=== PATIENT | female | born 1970 | race Caucasian/White ===

== ENCOUNTER 2017-01-17 09:51 | Emergency (ER) | payer BC ==
[2017-01-17 10:07] VITALS: BP 140/88
--- NOTE | 2017-01-17 10:21 | UC ---
Ear Complaint HPI - HPI Summary HPI Summary: Patient is a 46yo otherwise healthy who arrives to with c/o of R ear pain since 0400 this morning. She states having been ill since Tuesday with a URI. Denies fever. Pain noticed first this morning and has not improved. She feels it may be clogged, but is also very irritated. Denies chest congestion, runny nose, BOWLING, cough or other viral symptoms. She does not have a significant history of ear infections and has no tubes. She has tried Tylenol with minimal relief. Denies other injuries or pain today. - History of Current Complaint Chief Complaint: UCEar Stated Complaint: RIGHT EAR COMPLAINT Time Seen by Provider: 01/17/17 10:06 Hx Obtained From: Patient Hx Last Menstrual Period: 01/07/17 ?: No Onset/Duration: Sudden Onset Severity Initially: Moderate Severity Currently: Moderate Pain Intensity: 6 Pain Scale Used: 0-10 Numeric Alleviating Factors: OTC Meds Associated Signs/Symptoms: Positive: Hearing Loss, Swelling @, URI Symptoms - Allergies/Home Medications Allergies/Adverse Reactions: Allergies Allergy/AdvReac Type Severity Reaction Status Date / Time Erythromycin AdvReac Vomiting Verified 01/17/17 10:07 Home Medications: Home Medications Acetaminophen [Tylenol 8 Hour] 650 mg PO ONCE PRN 01/17/17 [History Confirmed ] traZODone TAB* [Desyrel TAB*] 100 mg PO BEDTIME 01/17/17 [History Confirmed ] PMH/Surg Hx/FS Hx/Imm Hx Previously Healthy: Yes Respiratory History Of: Reports: Asthma - Surgical History Surgical History: Yes Surgery Procedure, Year, and Place: Cholecystectomy, 2001, [place] - Family History Known Family History: Positive: Unknown - Social History Occupation: Employed Full-time Lives: With Family Alcohol Use: Rare Substance Use Type: None Smoking Status (MU): Never Smoked Tobacco Have You Smoked in the Last Year: No Review of Systems Constitutional: Negative Skin: Negative Eyes: Negative ENT: Ear Ache, Other - cerumen impaction Respiratory: Negative Motor: Negative Neurovascular: Negative Musculoskeletal: Negative Psychological: Negative All Other Systems Reviewed And Are Negative: Yes Physical Exam Triage Information Reviewed: Yes Appearance: Well-Appearing, No Pain Distress, Well-Nourished Vital Signs: Initial Vital Signs Temp 98.8 F 01/17/17 10:03 Pulse 88 01/17/17 10:03 Resp 16 01/17/17 10:03 BP 140/88 01/17/17 10:03 Pulse Ox 100 01/17/17 10:03 Vital Signs Reviewed: Yes Eye Exam: Normal Eyes: Positive: Conjunctiva Clear ENT: Positive: Pharynx normal, TM red - right Neck exam: Normal Neck: Positive: Supple, Nontender, No Lymphadenopathy Respiratory Exam: Normal Respiratory: Positive: Chest non-tender, Lungs clear Cardiovascular Exam: Normal Cardiovascular: Positive: RRR Musculoskeletal Exam: Normal Musculoskeletal: Positive: Strength Intact Neurological Exam: Normal Psychological: Positive: Normal Response To Family, Age Appropriate Behavior Skin Exam: Normal Ear Complaint Course/Dx - Course Course Of Treatment: Ear irrigation performed of right ear. Patient tolerated well. Right ear with cerumen impaction and erythema around the TM and canal. Patient states pain is 10/10. No obvious drainage, but collection of fluid inside the canal. Patient has history of swimmers ear. Patient given ofloxacin drops and encouraged to take tylenol for ear pain. Patient will follow up with PCP. - Differential Dx/Diagnosis Differential Diagnosis/HQI/PQRI: Cerumen Impaction, Foreign Body, Otitis Externa , Otitis Media Provider Diagnoses: Otitis Externa Discharge - Discharge Plan Condition: Stable Disposition: HOME Prescriptions: Ofloxacin 0.3% OTIC.RYLEY* [Floxin 0.3% OTIC.RYLEY*] 1 drop OTIC ONCE #1 btl Patient Education Materials: Otitis Externa (ED) Referrals: Linda Cadena MD [Primary Care Provider] - Additional Instructions: Instill 10 drops into affected ear(s) once daily for 7 days Tylenol as needed for pain and inflammation of the ear Follow up with PCP If symptoms become worse, come back to .
== END 2017-01-17 10:47 | disposition home or self-care (01) ==
LOC: UCCORT 09:51
DX: H60.91 Unspecified otitis externa, right ear (principal); H61.21 Impacted cerumen, right ear; J45.909 Unspecified asthma, uncomplicated; Z90.49 Acquired absence of other specified parts of digestive tract; Z88.1 Allergy status to other antibiotic agents
CPT/HCPCS: 99213; G0463

== ENCOUNTER 2017-04-15 15:50 | Emergency (ER) | payer BC | END 2017-04-15 17:47 | disposition left against medical advice (07) | LOC: UCCORT 15:50 | DX: M54.5 Low back pain (principal); Z53.21 Procedure and treatment not carried out due to patient leaving prior to being seen by health care provider ==

== ENCOUNTER 2017-12-19 10:50 | Emergency (ER) | payer BC | END 2017-12-19 12:19 | disposition left against medical advice (07) | LOC: UCCORT 10:50 | DX: J34.89 Other specified disorders of nose and nasal sinuses (principal); H92.01 Otalgia, right ear; Z53.21 Procedure and treatment not carried out due to patient leaving prior to being seen by health care provider ==

== ENCOUNTER 2017-12-25 17:55 | Emergency (ER) | payer BC ==
--- NOTE | 2017-12-25 18:17 | UC ---
Throat Pain/Nasal Todd HPI - HPI Summary HPI Summary: Pt presents with sinus pain/pressure/congestion and b/l ear pressure for 1 week. Sore throat started 3-4 days ago. Has not been taking anything OTC. Denies fever, chills, SOB, chest pain, abdominal pain, n/v/d/c. - History of Current Complaint Stated Complaint: EAR,THROAT COMPLAINT Time Seen by Provider: 12/25/17 18:17 Hx Obtained From: Patient Hx Last Menstrual Period: 01/07/17 Onset/Duration: Gradual Onset Severity: Mild Pain Intensity: 4 Pain Scale Used: 0-10 Numeric - Allergies/Home Medications Allergies/Adverse Reactions: Allergies Allergy/AdvReac Type Severity Reaction Status Date / Time erythromycin AdvReac Vomiting Uncoded 12/25/17 18:21 Home Medications: Home Medications Acetaminophen [Acetaminophen Extra Strength] 1,000 mg PO SEE INSTRUCTIONS PRN [History Confirmed 12/25/17] Ibuprofen [Goodsense Ibuprofen] 400 mg PO ONCE PRN 12/25/17 [History Confirmed 12/25/17] PMH/Surg Hx/FS Hx/Imm Hx Previously Healthy: Yes - Surgical History Surgical History: Yes Surgery Procedure, Year, and Place: Cholecystectomy, 2001, [place] - Family History Known Family History: Positive: Unknown - Social History Occupation: Employed Full-time Lives: With Family Alcohol Use: Rare Substance Use Type: None Smoking Status (MU): Never Smoked Tobacco Have You Smoked in the Last Year: No Review of Systems Constitutional: Negative Skin: Negative Eyes: Negative ENT: Sore Throat, Ear Ache, Nasal Discharge, Sinus Congestion, Sinus Pain/ Tenderness Respiratory: Negative Cardiovascular: Negative Gastrointestinal: Negative Neurovascular: Negative Neurological: Negative Psychological: Negative All Other Systems Reviewed And Are Negative: Yes Physical Exam - Summary Physical Exam Summary: GENERAL: NAD. WDWN HEENT: NC/AT. Conjunctiva clear without inflammation or discharge. TMs intact , no bulging, erythema, or edema. Nasal mucosa mildly swollen and erythematous with clear discharge. TTP maxillary and frontal sinus. Posterior oropharynx without exudates, erythema, or tonsillar enlargement. Uvula midline. NECK: Supple without lymphadenopathy CHEST: CTAB. No r/r/w. No accessory muscle use. Breathing comfortably and in no distress. CV: RRR. Without m/r/g. Pulses intact. SKIN: No rash or erythema noted. NEURO: Alert. CN II-XII grossly intact. PSYCH: Age appropriate behavior. Triage Information Reviewed: Yes Throat Pain/Nasal Course/Dx - Course Course Of Treatment: Sinusitis - Amoxicillin - Differential Dx/Diagnosis Provider Diagnoses: Sinusitis Discharge - Sign-Out/Discharge Documenting (check all that apply): Discharge - Discharge Plan Condition: Stable Disposition: HOME Prescriptions: Amoxicillin PO (*) [Amoxicillin 500 MG CAP*] 500 mg PO Q12H #20 cap Patient Education Materials: Sinusitis (ED) Referrals: Linda Cadena MD [Primary Care Provider] - Additional Instructions: If you develop a fever, shortness of breath, chest pain, new or worsening symptoms - please call your PCP or go to the ED. - Billing Disposition and Condition Condition: STABLE Disposition: HOME
[2017-12-25 18:32] VITALS: BP 116/56
[2017-12-25] MEDS ORDERED: Amoxicillin PO (*) 500 MG CAP PO ONE (18:40)
== END 2017-12-25 18:58 | disposition home or self-care (01) ==
LOC: UCCORT 17:55
DX: J32.9 Chronic sinusitis, unspecified (principal); Z88.3 Allergy status to other anti-infective agents
CPT/HCPCS: 99212; A9270-GY; G0463